=== PATIENT | male | born 1935 | race Caucasian/White ===

== ENCOUNTER 2019-10-11 06:13 | Observation (INO) | payer MEDICARE ==
[~2019-10-11] VITALS: Ht 185.4 cm; Wt 84.0 kg
[2019-10-11] MEDS ORDERED: SODIUM CHLORIDE 0.9% 1,000 ML IV SCH (06:30)
[2019-10-11 06:50] VITALS: BP 153/92
[2019-10-11] MEDS ORDERED: APIX2.5T PO (07:02)
[2019-10-11] MEDS ORDERED: POTA20TA14 PO (07:02)
[2019-10-11] MEDS ORDERED: FURO-92 PO (07:02)
[2019-10-11] MEDS ORDERED: LIDOCAINE 1%, 20ML ONE ×2 (07:55→10:58)
[2019-10-11] MEDS ORDERED: FENTANYL PF 250 MCG/5ML ONE (08:00)
[2019-10-11] MEDS ORDERED: PROPOFOL 10 MG/ML, 20ML ONE (08:01)
[2019-10-11] MEDS ORDERED: SUCCINYLCHOLINE 20 MG/ML, 10ML ONE (08:01)
[2019-10-11] MEDS ORDERED: HEPARIN 1,000 UNITS/ML, 10ML ONE ×2 (08:03)
[2019-10-11] MEDS ORDERED: ONDANSETRON 2MG/ML, 2ML ONE ×2 (08:03)
[2019-10-11] MEDS ORDERED: DEXAMETHASONE 4 MG/ML, 1ML ONE ×2 (08:03)
[2019-10-11] MEDS ORDERED: VASOPRESSIN 20 UNIT/ML, 1ML ONE (08:05)
[2019-10-11] MEDS ORDERED: EPHEDRINE 50 MG/ML, 1ML ONE (08:24)
[2019-10-11] MEDS ORDERED: GLYCOPYRROLATE 0.2MG/1ML, 5ML ONE (10:51)
[2019-10-11] MEDS ORDERED: PROTAMINE SULFATE 10 MG/ML, 5ML ONE (10:57)
[2019-10-11] MEDS ORDERED: CEFAZOLIN 1,000 MG ONE (10:58)
[2019-10-11] MEDS ORDERED: ONDANSETRON ODT 8 MG PO PRN (12:30)
[2019-10-11] MEDS ORDERED: MIDAZOLAM 1 MG/ML, 2ML IV PRN (12:30)
[2019-10-11] MEDS ORDERED: DIAZEPAM 5 MG/ML, 2ML IVPush PRN (12:30)
[2019-10-11] MEDS ORDERED: ALBUTEROL SULFATE 2.5 MG/3 ML NPPB PRN (12:30)
[2019-10-11] MEDS ORDERED: MEPERIDINE/PF 25MG/ML,1ML IVPush PRN (12:30)
[2019-10-11] MEDS ORDERED: HYDROmorphone 1 MG/ML, 1ML INJ IVPush PRN (12:30)
[2019-10-11] MEDS ORDERED: HOLD MEDICATION MC PRN (12:30)
[2019-10-11] MEDS ORDERED: PROMETHAZINE 12.5 MG SUPP PR PRN (12:30)
[2019-10-11] MEDS ORDERED: HALOPERIDOL 5 MG/ML IV PRN (12:30)
[2019-10-11] MEDS ORDERED: PROMETHAZINE 25 MG/ML, 1ML IV PRN (12:30)
[2019-10-11] MEDS ORDERED: LABETALOL 5MG/ML, 20ML IV PRN (12:30)
[2019-10-11] MEDS ORDERED: hydrALAzine 20 MG/ML, 1ML IV PRN (12:30)
[2019-10-11] MEDS ORDERED: ONDANSETRON 2MG/ML, 2ML IV PRN (12:30)
[2019-10-11] MEDS ORDERED: OXYcodone 5 MG/5 ML ORAL.SOL UDC PO PRN (12:30)
[2019-10-11] MEDS ORDERED: EPHEDRINE 50 MG/ML, 1ML IVPush PRN (12:30)
[2019-10-11] MEDS ORDERED: FENTANYL PF 100 MCG/2ML IV PRN (12:30)
[2019-10-11] MEDS ORDERED: ACETAMINOPHEN 325 MG TABLET PO PRN (12:30)
[2019-10-11 13:41] VITALS: BP 110/71
[2019-10-11] MEDS ORDERED: FUROSEMIDE 40 MG/4 ML IV ONE (15:30)
[2019-10-11] MEDS: CEFAZOLIN PMX 1GM/50ML 50 ML IVPB SCH (20:54)
[2019-10-11] MEDS: SODIUM CHLORIDE FLUSH 10ML SYR IVF SCH (21:00)
[2019-10-11 21:20] VITALS: BP 138/87
[2019-10-12 00:13] VITALS: BP 126/76
[2019-10-12] MEDS ORDERED: DIPHENHYDRAMINE 25 MG CAPSULE PO PRN (01:00)
[2019-10-12] MEDS ORDERED: ACETAMINOPHEN 325 MG TABLET PO PRN (01:00)
[2019-10-12] MEDS: CEFAZOLIN PMX 1GM/50ML 50 ML IVPB SCH ×2 (03:34→11:28)
[2019-10-12 05:12] LABS: ALANINE AMINOTRANSFERASE 59 U/L (12-78); ANION GAP 5 mmol/L (5-15); CALCIUM 8.8 mg/dL (8.5-10.1); CHLORIDE 106 mmol/L (98-107)
[2019-10-12 05:15] LABS: ALKALINE PHOSPHATASE 62 U/L (45-117); BILIRUBIN,TOTAL 0.7 mg/dL (0.2-1.0); CREATININE 1.97 mg/dL (0.7-1.3); TOTAL PROTEIN 6.3 g/dL (6.4-8.2)
[2019-10-12] MEDS ORDERED: POTASSIUM CHLORIDE 20 MEQ TAB.ER.PRT PO SCH (09:00)
[2019-10-12] MEDS ORDERED: FUROSEMIDE 40 MG TABLET PO SCH (09:00)
[2019-10-12 09:05] VITALS: BP 123/77
[2019-10-12] MEDS: SODIUM CHLORIDE FLUSH 10ML SYR IVF SCH (09:28)
[2019-10-12] MEDS ORDERED: CARVEDILOL 3.125 MG TABLET PO SCH (11:00)
[2019-10-12] MEDS ORDERED: CARVEDILOL 6.25 MG TABLET PO ONE (11:30)
[2019-10-12 14:05] VITALS: BP 112/71
[2019-10-12] MEDS ORDERED: CARV6.2512 PO (14:38)
[2019-10-12] MEDS ORDERED: APIXABAN 5 MG TABLET ONE (15:54)
[2019-10-12] MEDS ORDERED: CARVEDILOL 6.25 MG TABLET ONE (15:54)
[2019-10-12] MEDS ORDERED: CARVEDILOL 6.25 MG TABLET PO SCH (18:00)
[2019-10-12] MEDS ORDERED: APIXABAN 2.5 MG TABLET PO SCH (21:00)
== END 2019-10-12 16:00 | disposition home or self-care (01) ==
LOC: CACL 06:13 → ORIP 13:45 → 5SO 15:16 → DCLOUNGE 10-12 15:49
PROVIDERS: ADMIT Internal Medicine Cardiovascular Disease; ATTEND Internal Medicine Cardiovascular Disease
DX: I48.91 Unspecified atrial fibrillation (principal); I44.2 Atrioventricular block, complete; I42.0 Dilated cardiomyopathy; N28.9 Disorder of kidney and ureter, unspecified; J90 Pleural effusion, not elsewhere classified; R91.8 Other nonspecific abnormal finding of lung field; I10 Essential (primary) hypertension; I48.92 Unspecified atrial flutter; Z79.82 Long term (current) use of aspirin; Z79.899 Other long term (current) drug therapy; Z86.79 Personal history of other diseases of the circulatory system
CPT/HCPCS: 33208; 36415; 71045; 71250; 80053; 85347; 93306; 93462; 93613; 93621; 93653; 93655; 93662; 96365; 96366; 96375; C1730; C1732; C1759; C1766; C1779; C1785; C1892; C1893; C1894; G0378; J0330; J0690; J1100; J1644; J1940; J2405; J2704; J2720; J3010; J3490; Q0163